=== PATIENT | female | born 1975 | race Caucasian/White ===

== ENCOUNTER 2017-03-14 16:25 | Emergency (ER) | payer OTHER ==
[~2017-03-14] VITALS: Ht 170.2 cm; Wt 81.6 kg
--- NOTE | ~2017-03-14 | US61 ---
[facility] A Service of [facility] & [facility] / [facility] RADIOLOGY TEXT RESULTS PATIENT: TITO TONY LOCATION: CFTX : 79 UNIT #: [id number] AGE: [address]: Fanny Bourne SEX: F ORDER DR: [id number] [facility] [address] [place], [place] [address] [id number] E MR#: [id number] Acc #: [id number] NAME: TITO TONY : 1975 SEX: F STUDY DATE/TIME: 03/14/2017 17:34 UNIT: [facility]FOR ROOM: STUDY DESCRIPTION: US /Mat <14Wk / Attending Physician: Fanny Bourne P.A.-C. Ordering Physician: Fanny Bourne P.A.-C. Primary Care Physician: No Primary Care Physician MEDICAL IMAGING REPORT This report is preliminary unless electronic signature is present EXAM ultrasound 03/14/2017. HISTORY Pain. Spotting, cramping since this morning with pelvic pain. TECHNIQUE Real-time ultrasonography of the pelvic structures performed transabdominally and transvaginally. Transvaginal imaging utilized for better visualization of uterine and adnexal structures. FINDINGS Visualized urinary bladder unremarkable. The uterus measures approximately 10.68 cm x 6.69 cm X 6.67 cm. Slightly heterogeneous appearance of the myometrium without suspicious focal abnormality. The endometrial echo complex is also somewhat ill-defined and probably measures on the order of about 14 mm in thickness. Within the endometrial canal there is a cystic structure presumed to be gestational sac. Gestational sac diameters would suggest gestational age 6 weeks 2 days. Within the presumed gestational sac there is a questionable pole measuring 7.7 mm in diameter which would suggest a gestational age of 6 weeks 5 days. Normal appearing yolk sac not clearly identified and the gestational sac has some slight irregularity to 1 of its margins. Cardiac activity is not clearly identified in the presumed pole, but that this could be secondary to early stage of . Correlation with serial beta HCG and short-term interval followup ultrasound recommended. The left ovary shows vascular flow. It measures 4.01 cm x 3.29 cm x 3.55 cm and contains a cyst measuring 2.68 cm x 2.22 cm x 2.44 cm. Probably the corpus luteum of . Right ovary demonstrates vascular flow. It measures 3.20 cm x 1.83 cm x 2.39 cm. Last menstrual period 02/02/2017. . STS. [facility] A Service of [facility] RADIOLOGY TEXT RESULTS PATIENT: TITO TONY LOCATION: [place] : 79 UNIT #: [id number] AGE: [address]: Fanny Bourne SEX: F ORDER DR: IMPRESSION 1. The patient does appear to have an intrauterine gestational sac. Gestational sac diameters suggest gestational age approximately 6 weeks 2 days. 1 margin of the gestational sac is slightly irregular. A well-defined yolk sac is not seen. There is questionable visualization of a pole, the crown-rump length of which would suggest gestational age 6 weeks 5 days. Cardiac activity is not identified at this time. This could be a normally developing intrauterine without visualization of cardiac activity due to early time frame of the . Correlation with serial beta HCG values and short-interval ultrasound followup recommended. 2. Uterus otherwise unremarkable. 3. No free fluid in the pelvis. 4. Vascular flow in the bilateral ovaries. 5. Dominant cyst in the left ovary measuring up to 2.68 cm in diameter, most consistent with corpus luteum of . Dictated by... Celestino Desir M.D. THIS IS AN ELECTRONICALLY VERIFIED REPORT Celestino Desir M.D. at 03/16/2017 7:36 AM P[place] TD: 03/15/2017 08:10 JOB #: [id number] MEDICAL IMAGING REPORT Page 1 of 1 COPY
[2017-03-14 17:18] LABS: URINE SOURCE CLEAN CATCH
[2017-03-14 17:24] LABS: URINE APPEARANCE CLEAR; URINE BILIRUBIN NEG (NEG); URINE BLOOD 2+ (NEG); URINE COLOR YELLOW; URINE GLUCOSE NEG (NEG); URINE KETONE NEG (NEG); URINE LEUKOCYTE ESTERASE NEG (NEG); URINE NITRATE NEG (NEG); URINE PH 5.5 (5-8); URINE PROTEIN NEG (NEG); URINE SPECIFIC GRAVITY 1.012 (1.003-1.035); URINE UROBILINOGEN 0.2 MG/DL (NEG)
[2017-03-14 17:27] LABS: URINE BACTERIA AUWI NEG (NEGATIVE); URINE SQUAMOUS EPITHELIAL CELL NONE SEEN /[HPF]; UWBCS1 AUWI 0-2 (0-5)
[2017-03-14 17:28] LABS: CULTURE INDICATED? NO
[2017-03-14 17:44] LABS: BASOPHIL% 0.4 % (0-2.5); EOSINOPHIL# 0.1 X10e3 (0-0.7); EOSINOPHIL% 1.5 % (0.0-7.0); HEMATOCRIT 37.6 % (35.0-45.0); HEMOGLOBIN 12.7 gm/dL (12.0-16.0); LYMPHOCYTE# 1.5 X10e3 (1.0-3.5); LYMPHOCYTE% 21.8 % (17.0-45.0); MEAN CELL VOLUME 91.2 FL (83-96); MEAN CORPUSCULAR HEMOGLOBIN 30.8 PG (28-34); MEAN CORPUSCULAR HGB CONC 33.8 g/dL (30-36); MEAN PLATELET VOLUME 7.4 FL (6.5-11.5); MONOCYTE# 0.5 X10e3 (0-1.0); MONOCYTE% 6.8 % (3.0-12.0); NEUTROPHIL# 4.7 X10e3 (1.5-7.1); NEUTROPHIL% 69.5 % (40-75); PLATELET COUNT 253 X10e3 (140-420); RED BLOOD COUNT 4.13 X10e (3.90-5.30); RED CELL DISTRIBUTION WIDTH 12.4 % (11.0-15.5); WHITE BLOOD COUNT 6.8 X10e3 (4.0-10.5)
[2017-03-14 17:45] LABS: DIFF IND NO
== END 2017-03-14 19:30 | disposition home or self-care (01) ==
LOC: CFTX 16:25 → CED 16:25 → CFTX 18:27 → CED 18:27 → CFTX 19:30
PROVIDERS: Physician Assistant
DX: O20.0 Threatened abortion (principal); O99.341 Other mental disorders complicating pregnancy, first trimester; F41.9 Anxiety disorder, unspecified; Z87.891 Personal history of nicotine dependence; Z88.2 Allergy status to sulfonamides; Z3A.01 Less than 8 weeks gestation of pregnancy
CPT/HCPCS: 36415; 76801; 81003; 84702; 85025; 86900; 86901; 99284

== ENCOUNTER → 2017-03-17 | Outpatient (CLI) | payer OTHER | END | disposition home or self-care (01) | LOC: CLAB 14:03 | DX: Z32.01 Encounter for pregnancy test, result positive (principal); Z3A.00 Weeks of gestation of pregnancy not specified | CPT/HCPCS: 36415; 84144; 84702 ==